=== PATIENT | female | born 1970 | race Caucasian/White ===

== ENCOUNTER → 2018-11-29 | Outpatient (CLI) | payer BC, OTHER ==
--- NOTE | 2018-11-29 14:36 | REP ---
WHOLE BODY BONE SCAN: Following the intravenous administration of 21.8 mCi technetium 99m MDP, patient's whole body is imaged in the anterior and posterior projections. Additional oblique and lateral views are obtained. There is no compelling scintigraphic evidence of osseous metastases. Very mild increased uptake is seen in the region of the right inferior sternoclavicular joint, likely related to arthritic change. Tiny focus of increased uptake in the posterior aspect of the left calcaneus is likely due to minor stress-related changes at the Achilles tendon insertion site. Renal and bladder activity are seen. IMPRESSION: No compelling scintigraphic evidence of osseous metastases. Minimal increased uptake at the right sternoclavicular joint is most consistent with mild arthritic change. Tiny focus of increased uptake in the posterior left calcaneus is most consistent with minor stress-related changes at the insertion site of the Achilles tendon. Electronically Signed by Koby Houser MD 11/29/2018 04:13 P
== END ==
LOC: M RAD 09:27
PROVIDERS: ATTEND Internal Medicine Hematology & Oncology
DX: N64.4 Mastodynia (principal); Z85.3 Personal history of malignant neoplasm of breast
CPT/HCPCS: 78306; A9503

== ENCOUNTER → 2019-12-03 | Outpatient (REF) | payer OTHER ==
[2019-12-03 17:10] LABS: APPEARANCE, URINE CLEAR (CLEAR); BACTERIA, URINE AUTO 1+ (NEGATIVE); BILIRUBIN, URINE AUTO NEGATIVE (NEGATIVE); BLOOD, URINE BLOOD NEGATIVE (NEGATIVE); COLOR, URINE YELLOW (YELLOW); GLUCOSE, URINE (UA) AUTO NEGATIVE (NEGATIVE); KETONE, URINE AUTO NEGATIVE (NEGATIVE); LEUKOCYTE ESTERASE, URINE AUTO NEGATIVE (NEGATIVE); MUCUS, URINE SMALL (NEGATIVE); NITRITE, URINE AUTO NEGATIVE (NEGATIVE); PROTEIN, URINE AUTO NEGATIVE (NEGATIVE); RBC, URINE AUTO 1 /HPF (0-3); SQUAMOUS EPITHELIAL CELL UR AU 0 /HPF (0-6); UROBILINOGEN, URINE AUTO 0.2 mg/dL (0.0-2.0); WBC, URINE AUTO 0 /HPF (0-3)
[2019-12-03 17:13] LABS: BASO % 1.2 % (0.0-1.0); EOS % 0.9 % (0.0-3.0); HEMATOCRIT 38.8 % (36.0-47.0); HEMOGLOBIN 13.3 g/dl (12.0-15.5); LYMPH # 1.3 10^3/uL (1.5-5.0); LYMPH % 39.6 % (24.0-44.0); MEAN CORPUSCULAR HEMOGLOBIN 33.6 pg (27.0-33.0); MEAN CORPUSCULAR HGB CONC 34.3 g/dl (32.0-36.5); MONO # 0.4 10^3/uL (0.0-0.8); MONO % 11.8 % (0.0-5.0); NEUTROPHILS # 1.5 10^3/uL (1.5-8.5); NEUTROPHILS % 46.5 % (36.0-66.0); PLATELET COUNT, AUTOMATED 222 10^3/uL (150-450); RED BLOOD COUNT 3.96 10^6/uL (4.00-5.40); WHITE BLOOD COUNT 3.3 10^3/uL (4.0-10.0)
[2019-12-03 17:41] LABS: ALBUMIN 4.3 GM/DL (3.2-5.2); ALT/SGPT 27 U/L (12-78); BILIRUBIN,TOTAL 0.7 MG/DL (0.2-1.0); BLOOD UREA NITROGEN 9 MG/DL (7-18); C REACTIVE PROTEIN QUANTITATIV < 0.30 MG/DL (0.00-0.30); CALCIUM LEVEL 8.6 MG/DL (8.5-10.1); CARBON DIOXIDE LEVEL 31 MEQ/L (21-32); CHLORIDE LEVEL 104 MEQ/L (98-107); COMPLEMENT C3 119 MG/DL (90-180); COMPLEMENT C4 19 MG/DL (10-40); CREATININE FOR GFR 0.64 MG/DL (0.55-1.30); FERRITIN 30 NG/ML (8-252); GLOMERULAR FILTRATION RATE > 60.0 (>58); GLUCOSE, FASTING 75 MG/DL (70-100); IRON (FE) 103 UG/DL (50-170); POTASSIUM SERUM 3.7 MEQ/L (3.5-5.1); SODIUM LEVEL 138 MEQ/L (136-145); TOTAL PROTEIN 7.8 GM/DL (6.4-8.2)
[2019-12-03 17:50] LABS: TOTAL 25(OH) VITAMIN D 30.6 NG/ML (30.0-100.0); VITAMIN B12 LEVEL 1226 PG/ML
[2019-12-03 17:51] LABS: FOLATE 18.2 NG/ML
[2019-12-03 17:57] LABS: ERYTHROCYTE SEDIMENTATION RATE 17 mm/hr (0-20)
[2019-12-05 11:20] LABS: HEPATITIS B SURFACE ANTIGEN NEGATIVE (NEGATIVE)
[2019-12-05 11:48] LABS: HEPATITIS C VIRUS ABY INDEX < 0.0 INDEX (<0.8)
== END ==
LOC: M SFHCRHEU 15:49
PROVIDERS: ATTEND Internal Medicine
DX: R76.8 Other specified abnormal immunological findings in serum (principal); M25.50 Pain in unspecified joint; R53.82 Chronic fatigue, unspecified

== ENCOUNTER → 2019-12-05 | Outpatient (CLI) | payer BC, OTHER ==
--- NOTE | 2019-12-05 08:41 | REP ---
Clinical: Polyarthralgia. Technique: AP, lateral, bilateral oblique and coned-down views of the lumbosacral spine. Findings: Alignment and lordosis maintained. L5 spondylolysis without spondylolisthesis cannot be excluded. Mild degenerative changes at the L4-5 and L5-S1 levels includes hypertrophic facet changes, endplate sclerosis and minimal disc space narrowing. No acute fracture / compression injury or subluxation. Impression: 1. Cannot exclude L5 spondylolysis without spondylolisthesis. 2. Mild degenerative changes at L5-S1, L4-5. Electronically Signed by Wes Jean MD 12/05/2019 08:32 A
--- NOTE | 2019-12-05 08:42 | REP ---
Clinical: Polyarthralgia. Technique: AP, AP angled, and bilateral oblique views of the sacroiliac joints. Findings: Mild periarticular sclerosis is appreciated (right greater than left). No erosive changes, osteophytes or fusion. Impression: Mild periarticular sclerosis raises the possibility of sacroiliitis. Electronically Signed by Wes Jean MD 12/05/2019 08:34 A
== END ==
LOC: M ADAMS 08:03
PROVIDERS: ATTEND Internal Medicine
DX: M25.50 Pain in unspecified joint (principal)

== ENCOUNTER → 2019-12-22 | Outpatient (CLI) | payer BC, OTHER ==
--- NOTE | 2019-12-22 14:28 | REP ---
MRI pelvis and sacrum: History: Sacroiliac pain. Comparison SI joint radiographs December 05, 2019. Technique: Axial, oblique coronal, and sagittal imaging planes were utilized. T1 and T2-weighted scans were included with and without fat saturation. Findings: Cortical and medullary bone signal intensity are normal throughout the sacrum and coccyx. There is minimal disc bulging at L5-S1 and L4-5. The sacral thecal sac is unremarkable. There is a retroverted retroflexed uterus. No adnexal abnormality is appreciated. No pelvic mass or adenopathy or free fluid is seen. Axial and oblique coronal scans through the SI joints show no evidence of fluid, adjacent edema, erosive change, or ankylosis. There is mild facet joint hypertrophy at L5-S1. No neural foraminal abnormality is seen. The presacral and retro-sacral soft tissues are unremarkable. Impression: Mild degenerative disc and facet changes at the lumbosacral junction. Retroverted retroflexed uterus. No MR evidence of sacroiliitis. Otherwise negative. Electronically Signed by Mark Julio MD 12/22/2019 05:44 P
== END ==
LOC: M RAD 12:33
PROVIDERS: ATTEND Internal Medicine
DX: M53.3 Sacrococcygeal disorders, not elsewhere classified (principal)

== ENCOUNTER → 2021-02-14 | Outpatient (REF) | payer OTHER | LOC: M WUC 12:04 | PROVIDERS: ATTEND Physician Assistant | DX: N39.0 Urinary tract infection, site not specified (principal) ==

== ENCOUNTER → 2022-03-15 | Outpatient (CLI) | payer BC, OTHER ==
[~2022-03-15] MED LIST: PROHANCE 279.3MG/ML 15ML VIAL As Ordered ONE; PROHANCE 279.3MG/ML 5ML VIAL As Ordered ONE
== END ==
LOC: M RAD 14:42
PROVIDERS: ATTEND Internal Medicine Hematology & Oncology
DX: C50.419 Malignant neoplasm of upper-outer quadrant of unspecified female breast (principal); K76.89 Other specified diseases of liver
CPT/HCPCS: A9576; C8908